=== PATIENT | female | born 1970 | race American Indian/Alaskan Native ===

== ENCOUNTER 2018-06-02 05:43 | Emergency (ER) | payer MEDICAID ==
[2018-06-02 05:57] VITALS: BP 137/95
[2018-06-02] MEDS ORDERED: TORADOL IM ONE (07:57)
--- NOTE | 2018-06-02 08:25 | Emergency Department Report ---
ED Upper Extremity Inj HPI - General Chief Complaint: Extremity Injury, Upper Stated Complaint: r arm pain Time Seen by Provider: 06/02/18 07:31 Source: patient Mode of arrival: Ambulatory Limitations: No Limitations - History of Present Illness Initial Comments: Patient is a 48-year-old female comes to the ER today with a 2 month history of right arm pain. The pain is in the tricep area. Last night she could not sleep so she came to the ER today. She has not seen any doctor for the arm pain. She has taken Goody's at home without relief. PMH NONE RX NONE MD Complaint: Injury to:: right -: Sudden, month(s) (2) Other Extremity Injury: Arm: Right Place: home Associated Symptoms: denies other symptoms - Related Data Previous Rx's Medication Instructions Recorded Last Taken Type Naproxen [Naprosyn] 500 mg PO BID PRN #20 tablet 06/02/18 Unknown Rx Allergies Allergy/AdvReac Type Severity Reaction Status Date / Time No Known Allergies Allergy Unverified 09/10/15 14:53 ED Review of Systems ROS: Stated complaint: ARM PAIN Other details as noted in HPI Comment: All other systems reviewed and negative Musculoskeletal: other ED Past Medical Hx - Past Medical History Previous Medical History?: Yes Additional medical history: anxiety - Surgical History Past Surgical History?: No - Family History Family history: no significant - Social History Smoking Status: Never Smoker Substance Use Type: None - Medications Home Medications: Home Medications Medication Instructions Recorded Confirmed Last Taken Type Naproxen [Naprosyn] 500 mg PO BID PRN #20 tablet 06/02/18 Unknown Rx ED Physical Exam - General Limitations: No Limitations General appearance: alert - Head Head exam: Present: atraumatic - Eye Eye exam: Present: normal appearance - ENT ENT exam: Present: normal exam, mucous membranes moist - Neck Neck exam: Present: normal inspection - Cardiovascular Cardiovascular Exam: Present: regular rate - GI/Abdominal GI/Abdominal exam: Present: soft, normal bowel sounds - Rectal Rectal exam: Present: deferred - Extremities Exam Extremities exam: Present: normal inspection, full ROM - Back Exam Back exam: Present: normal inspection, full ROM - Neurological Exam Neurological exam: Present: alert, oriented X3, normal gait - Psychiatric Psychiatric exam: Present: normal affect, normal mood - Skin Skin exam: Present: warm, dry, intact ED Course Vital Signs 06/02/18 05:53 Temperature 98.3 F Pulse Rate 77 Respiratory 18 Rate Blood Pressure 137/95 O2 Sat by Pulse 100 Oximetry ED Medical Decision Making - Medical Decision Making 2 m history r arm pain after using work out equipment she has not seen a MD her had been wrapping the arm and thats making it worse. pt has not taken any meds other than goodys last night she could not sleep because of the pain full rom neurovasc intact not concerned for bone fx no effusion of elbow will treat conservatively with nsaids and ortho follow up toradol for pain in ER. Vital Signs 06/02/18 05:53 Temperature 98.3 F Pulse Rate 77 Respiratory 18 Rate Blood Pressure 137/95 O2 Sat by Pulse 100 Oximetry Critical care attestation.: If time is entered above; I have spent that time in minutes in the direct care of this critically ill patient, excluding procedure time. ED Disposition Clinical Impression: Arm pain, Musculoskeletal pain Disposition: - TO HOME OR SELFCARE Is pt being admited?: No Does the pt Need Aspirin: No Condition: Stable Additional Instructions: ICE REST ELEVATE NO WRAPPING MED ORDERED TODAY FOLLOW UP DR GARZA REFERRAL BELOW Referrals: [facility] MD REY [Primary Care Provider] - 3-5 Days ESA GARZA MD [Staff Physician] - 3-5 Days Time of Disposition: 08:25
== END 2018-06-02 08:58 | disposition home or self-care (01) ==
LOC: ED 05:43
DX: M79.601 Pain in right arm (principal); F41.9 Anxiety disorder, unspecified
CPT/HCPCS: 96372; 99282; J1885